=== PATIENT | male | born 1995 | race Caucasian/White ===

== ENCOUNTER → 2022-05-06 10:00 | Outpatient (BNVA) | payer BC, SELFPAY | PROVIDERS: PCP Family Medicine; Visit Provider Family Medicine | DX: N45.1 Epididymitis (principal); Z11.59 Encounter for screening for other viral diseases; Z11.4 Encounter for screening for human immunodeficiency virus [HIV]; Z76.89 Persons encountering health services in other specified circumstances; F41.1 Generalized anxiety disorder | CPT/HCPCS: 80053; 81003; 85025; 86803; 87806 ==

== ENCOUNTER 2022-07-25 07:37 | Outpatient (CLI) | payer BC, SELFPAY ==
--- NOTE | 2022-07-25 07:45 | US_ITS ---
WS: [id number] TESTICULAR ULTRASOUND HISTORY: Scrotal/testicular mass. COMPARISON: None available. TECHNIQUE: Real-time and color Doppler imaging or utilized to perform a testicular ultrasound. Right testicle: 5.3 cm x 3.0 cm x 2.4 cm. Normal size and echogenicity. No mass or torsion. Normal color Doppler is present throughout. Systolic and diastolic velocities are both present. No significant hydrocele. Right epididymis: Normal epididymis with no increased vascularity. Left testicle: 5.4 cm x 3.5 cm x 2.5 cm. Normal size and echogenicity. No mass or torsion. Normal color Doppler is present throughout. Systolic and diastolic velocities are both present. No significant hydrocele. Left epididymis: Normal epididymis with no increased vascularity. US/US scrotum [id number] IMPRESSION: NORMAL TESTICULAR ULTRASOUND.
== END 2022-07-25 07:38 | disposition home or self-care (01) ==
LOC: RAD 07:44
PROVIDERS: PCP Family Medicine; Visit Provider Family Medicine
DX: N45.1 Epididymitis (principal); N50.89 Other specified disorders of the male genital organs
CPT/HCPCS: 76870

== ENCOUNTER → 2023-01-28 12:08 | Outpatient (BNVA) | payer BC, SELFPAY | PROVIDERS: PCP Family Medicine; Visit Provider Nurse Practitioner | DX: J02.9 Acute pharyngitis, unspecified (principal) | CPT/HCPCS: 87880 ==